=== PATIENT | male | born 1995 | race African-American/Black ===

== ENCOUNTER 2019-02-01 00:15 | Emergency (ER) | payer OTHER ==
[2019-02-01 00:47] VITALS: BP 132/80; PULSE 62; TEMP 98.2; BMI 32.4
[2019-02-01] MEDS ORDERED: ALBUTEROL SO4 2.5/IPRATROPIUM 0.5 INH SOL 3 ML VIAL.NEB. NEB ONE (00:58)
--- NOTE | 2019-02-01 00:59 | PDOC ---
History of Present Illness - General Chief Complaint: Cold Symptoms Stated Complaint: CHEST PAIN,COUGHING Time Seen by Provider: 02/01/19 00:57 History Source: Patient Exam Limitations: No Limitations - History of Present Illness Initial Comments: 02/01/19 01:24 HPI 23 YOM with no medical history presenting with 1 month of nonproductive cough, with anterior chest pain worse with coughing; started with URI sx, nasal congestion and cough ~1.5 months ago, +sick contacts at the time, including mother and brother, both getting better. finished short course of Zpak ~2 weeks ago, without relief. took ibuprofen at 9pm tonight, minimal relief. Denies fever, chills, wheezing/hemoptysis, SOB, palpitation, dizziness, weakness , N, V, D, abdominal pain, rash, leg swelling, No travel. No new changes in medications. Allergies: pcn Past Medical History: none Social history: Lives with family. No tobacco, ETOH use. +occasional marijuana use Surgical history: inguinal hernia repair as child Meds: as documented in EMR Review of systems Constitutional: no fevers or chills. HEENT: +headache. no dizziness. No visual/hearing disturbances. no ear pain, no sore throat or difficulty swallowing. CVS: no syncope. +chest pain Resp: no sob. no wheezing or hemoptysis. +cough Gastrointestinal: no abdominal pain, nausea or vomiting. Genitourinary: no urinary sx, hematuria. MUSCULOSKELETAL: No joint pain and swelling. No neck or back pain. SKIN: no redness or skin changes, no discharge, no rash. No wounds. Hematologic: no easy bruising/bleeding. NEUROLOGIC: No dizziness, LOC or altered mental status. Allergic/Immunologic: no environmental allergies All other systems reviewed and negative, or as documented in HPI. Physical exam: General: Well appearing, awake and alert, NAD. HEENT: NCAT, PERRL, EOMI, clear conjunctiva, anicteric, moist mucus membranes, clear oropharynx, no oral lesions.. normal phonation. Neck: neck supple, FROM Resp: CTAB, normal and even respirations, no respiratory distress CVS: RRR, no murmurs, 2+ peripheral pulses throughout, no peripheral edema Abdomen: soft, NTND, no peritoneal signs. Back: nontender, normal inspection and ROM MSK: no edema, DIAZ x4, ROM intact. No clubbing or cyanosis. normal bulk and tone. Neuro: alert Skin: warm and well perfused, cap refill <2 sec, normal color 02/01/19 01:26 Past History - Past Medical History Allergies/Adverse Reactions: Allergies Allergy/AdvReac Type Severity Reaction Status Date / Time Penicillins Allergy Swelling Verified 02/01/19 00:34 Home Medications: Ambulatory Orders Albuterol Sulfate Inhaler - [Ventolin HFA Inhaler -] 1 - 2 inh PO Q4H PRN #1 inhaler 02/01/19 Benzonatate [Tessalon Pearls -] 100 mg PO TID PRN #15 capsule 02/01/19 - Surgical History Abdominal Surgery: Yes - Immunization History Immunization Up to Date: Yes - Suicide/Smoking/Psychosocial Hx Smoking Status: No Smoking History: Never smoked Have you smoked in the past 12 months: No Number of Cigarettes Smoked Daily: 0 Information on smoking cessation initiated: No Hx Alcohol Use: No Drug/Substance Use Hx: No *Physical Exam - Vital Signs Last Vital Signs Temp Pulse Resp BP Pulse Ox 98.2 F 62 20 132/80 100 02/01/19 00:34 02/01/19 00:34 02/01/19 00:34 02/01/19 00:34 02/01/19 00:34 Heart Score/ECG Review #1 ECG reviewed & interpreted by me at: 01:40 General ECG Interpretation: Sinus Rhythm, Normal Rate, Normal Intervals, No acute ischemic changes 02/01/19 01:55 EKG normal sinus rhythm at 55 bpm, no interval abnormalities, narrow QRS, ST and T wave segments and morphology normal, up sloping segments appearing more like benign early repolarization.. Nonspecific T wave abnormalities in III only , no contiguous lead changes ED Treatment Course - RADIOLOGY Radiology Studies Ordered: Category Date Time Status CHEST PA & LAT [RAD] Stat Radiology 02/01/19 00:58 Ordered Radiograph Interpretation: 02/01/19 01:35 Chest Xray Interpreted by ED Physician: CXR (2 view): no acute abnormality: no infiltrates , bones appear intact and structures normal alignment, cardiac silhouette within normal limits. no free air under diaphragm, no pneumothorax. Medical Decision Making - Medical Decision Making 02/01/19 01:52\ hpi as documented VS reviewed, wnl. no fever, normal BP and no hypoxia ddx. bronchitis, viral syndrome, URI, pna. pleurisy, costochondritis no s/s or e/o liane or myocarditis. given duoneb x1, with some relief. lungs are clear, no distress CXR clear, no e/o pna given analgesia here. EKG NSR, no e/o ischemia, no ST segment derangements, more appearing as early benign early repol. nonspecific T wave abnormality in III only, no contiguous lead changes. no ST segments elevations or depressions to suggest pericarditis. rx albuterol inhaler, use every 4-6 hr as needed tessalon perles as needed expectant management, likely viral URI /bronchitis supportive care measures, hydration, analgesia for cp, likely costochondritis from coughing episodes 02/01/19 01:53 02/01/19 01:56 *DC/Admit/Observation/Transfer Diagnosis at time of Disposition: Bronchitis, URI (upper respiratory infection) - Discharge Dispostion Disposition: HOME Condition at time of disposition: Good Decision to Admit order: No - Prescriptions Prescriptions: Albuterol Sulfate Inhaler - [Ventolin HFA Inhaler -] 1 - 2 inh PO Q4H PRN #1 inhaler PRN Reason: Cough Benzonatate [Tessalon Pearls -] 100 mg PO TID PRN #15 capsule PRN Reason: Cough - Referrals Referrals: ON STAFF,NOT [Primary Care Provider] - [facility] [place] [Provider Group] [facility] [Provider Group] - Patient Instructions Printed Discharge Instructions: DI for Acute Bronchitis, DI for Viral Upper Respiratory Infection -- Adult Additional Instructions: you most likely have a viral bronchitis, antibiotics will not necessarily work cough can last for 4-6 weeks after initial infection. your xray was negative for pneumonia for the chest pain, this is most likely muscular and nerve inflammation from the coughing and using your rib cage muscles. Please take IBUPROFEN (aka MOTRIN, ADVIL, ALEVE) 400 mg and/or ACETAMINOPHEN ( aka Tylenol) 650-975 mg every 6 hours, as needed, for pain. Please do not take these medications if you have a bleeding disorder, stomach or GI ulcer problems or liver disease. salt water gargles and warm lemon tea is appropriate as well for soothing qualities for sore throat/cough. minimize spread of infection given contagious nature, and cover your mouth and wash your hands adequately with soap and water. Stay well hydrated and rest. Cool air - walk around outdoors in the evening. May also try hot shower steam. This can alleviate the congestion and cough. May use the albuterol inhaler every 4-6 hours as needed for cough and breathing to clear up your airways. Return precautions include respiratory distress, difficulty breathing, chest pain, lethargy, confusion, dehydration, high fevers or pain. - Post Discharge Activity
[2019-02-01] MEDS ORDERED: IBUPROFEN 600 MG TABLET (FP) PO ONE ×2 (01:25→01:42)
[2019-02-01] MEDS ORDERED: ACETAMINOPHEN 325 MG TABLET (FP) PO ONE (01:25)
[2019-02-01] MEDS ORDERED: ACETAMINOPHEN 325 MG TABLET (FP) ONE (01:42)
--- NOTE | 2019-02-01 12:13 | EKG ---
Test Reason : Blood Pressure : / mmHG Vent. Rate : 055 BPM Atrial Rate : 055 BPM P-R Int : 146 ms QRS Dur : 084 ms QT Int : 440 ms P-R-T Axes : 052 047 026 degrees QTc Int : [address] ELEVATION, CONSIDER EARLY REPOLARIZATION BORDERLINE ECG NO PREVIOUS ECGS AVAILABLE Confirmed by SOLE FATIMA, NAOMI ([id number]) on 02/01/2019 12:13:23 PM Referred By: Confirmed By:NAOMI WHIPPLE MD
== END 2019-02-01 02:04 | disposition home or self-care (01) ==
LOC: JER 00:15
PROC: 3E0F7GC Introduction of Other Therapeutic Substance into Respiratory Tract, Via Natural or Artificial Opening (ICD-10-PCS; principal; 2019-02-01)
DX: J40 Bronchitis, not specified as acute or chronic (principal); J06.9 Acute upper respiratory infection, unspecified
CPT/HCPCS: 71046-TC-FY; 93005; 93010; 99283-25